=== PATIENT | male | born 1985 | race Caucasian/White ===

== ENCOUNTER 2017-08-03 13:19 | Emergency (ER) | payer OTHER, SELFPAY | END 2017-08-03 16:10 | disposition home or self-care (01) | PROVIDERS: Family Provider Family Medicine | DX: R05 Cough (principal) | CPT/HCPCS: 71020; 99201 ==

== ENCOUNTER 2017-11-07 06:57 | Emergency (ER) | payer OTHER, SELFPAY ==
[2017-11-07 07:01] VITALS: BP 139/98; PULSE 76; RESP 14; TEMP 36.5; O2SAT 98; BMI 24.4
[2017-11-07 07:19] LABS: Microscopic, Urine URINE MICROSCOPIC (MICROSCOPIC)
[2017-11-07 07:22] LABS: Appearance,Urine CLEAR (Clear); Bilirubin,Urine Negative (Negative); Blood, Urine Negative (Negative); Color,Urine YELLOW (Yellow); Glucose,Urine (UA) Negative (Negative); Ketones,Urine Negative (Negative); Leukocyte Esterase,Urine Negative (Negative); Nitrate,Urine Negative (Negative); PH,Urine 6.5 (5.0-8.5); Protein,Urine Negative (Negative); Specific Gravity, Urine <= 1.005 (1.005-1.030); Urobilinogen,Urine 0.2 EU/dl (0.2)
[2017-11-07 07:34] LABS: Basophils % 0.4 % (0.1-2.0); Eosinophils % 0.8 % (0.1-12.0); Hematocrit 44.2 % (42.0-52.0); Hemoglobin 15.3 g/dL (14.1-18.0); Lymphocytes # 1.5 K/mm3 (0.7-4.5); Lymphocytes % 26.6 K/mm3 (10-50); Mean Corpuscular HGB Conc 34.5 g/dL (31.8-35.4); Mean Corpuscular Hemoglobin 31.6 pg (27.0-31.2); Mean Corpuscular Volume 91.7 fl (80-94); Mean Platelet Volume 8.4 fl (7.4-10.4); Monocytes # 0.3 K/mm3 (0.1-1.0); Monocytes % 6.3 % (1.7-9.3); Neutrophils # 3.6 K/mm3 (1.8-7.8); Platelet Count 213 K/mm3 (142-424); Red Blood Count 4.82 M/mm3 (4.60-6.20); White Blood Count 5.4 K/mm3 (4.8-10.8)
--- NOTE | 2017-11-07 07:38 | PC.NURSE ---
pt refused left shoulder x-ray. +
[2017-11-07 07:40] LABS: Bacteria,Urine Trace /lpf; Squamous Epithelial Cell,Urine Occasional #/hpf (0-5)
[2017-11-07 08:06] LABS: Alanine Aminotransferase 24 U/L (12-78); Albumin Level 4.2 gm/dL (3.4-5.0); Albumin/Globulin Ratio 1.4 (1.1-1.8); Alkaline Phosphatase 81 U/L (46-116); Amylase 45 U/L (25-125); Anion Gap 13.7 mEq/L (5-15); Aspartate Amino Transferase 16 U/L (15-37); Bilirubin,Total 0.9 mg/dL (0.2-1.0); Blood Urea Nitrogen 11 mg/dL (7-18); CKMB Relative Index 0.7 U/L (0-4.0); Calcium 8.6 mg/dL (8.5-10.1); Carbon Dioxide 29 mmol/L (21.0-32.0); Chloride 102 mmol/L (98-107); Creatine Kinase 322 U/L (39-308); Creatine Kinase MB 2.4 mg/ml (0.0-3.6); Creatinine Clearance Estimated 115 mL/min (0-300); Creatinine,Serum 1.08 mg/dL (0.70-1.30); Estimated Glomerular Filt Rate 79 ml/min (>60); GFR (African American) 95 ML/MIN (>60); Globulin 3.1 gm/dl (1.3-3.2); Glucose 103 mg/dL (74-106); Lipase 80 u/L (73-393); Potassium 3.7 mmoL/L (3.5-5.1); Sodium 141 mmol/L (136-145); Total Protein,Serum 7.3 gm/dL (6.4-8.2); Troponin I < 0.02 ng/ml (0.00-0.06)
--- NOTE | 2017-11-07 08:37 | [facility]H.EDCP ---
ED Disposition Clinical Impression: Atypical chest pain Disposition: Home, Self-Care Condition on Discharge: Good Instructions: DI for Atypical Chest Pain Additional Instructions: See Dr. Gaming for follow up this week. Referrals: Sohail Gaming MD [Primary Care Provider] - Time of Disposition: 08:47 - Critical Care Critical Care Time: No Attestation: On 11/07/17, the high probability of a clinically significant, sudden or life threatening deterioration of the following system(s) required my full and direct attention, intervention and personal management. The time I documented below is in addition to time spent performing reported procedures but includes the following listed in this critical care notation. Medical Decision Making - Uriel Inquiry Pt receiving controlled substance: No Vital Signs: 11/07/17 07:01 Temperature 97.7 F Temperature Source Oral Pulse Rate [Right Radial] 76 Respiratory Rate 14 Blood Pressure [Right Arm] 139/98 Blood Pressure Mean [Right Arm] 111 Blood Pressure Source [Right Arm] Automatic Cuff Blood Pressure Position [Right Arm] Sitting 02 Sat by Pulse Oximetry 98 Oxygen Delivery Method Room Air - Lab Data Lab results reviewed: Yes: I reviewed the patient's lab results. Lab Results 11/07/17 07:07: Urine Color Yellow, Urine Appearance Clear, Urine pH 6.5, Ur Specific [place] <= 1.005, Urine Protein Negative, Urine Glucose (UA) Negative, Urine Ketones Negative, Urine Blood Negative, Urine Nitrate Negative, Urine Bilirubin Negative, Urine Urobilinogen 0.2, Ur Leukocyte Esterase Negative, Urine RBC None, Urine WBC None, Ur Squamous Epith Cells Occasional, Urine Bacteria Trace 11/07/17 07:23: WBC 5.4, RBC 4.82, Hgb 15.3, Hct 44.2, MCV 91.7, MCH 31.6 H, MCHC 34.5, RDW 12.0, Plt Count 213, MPV 8.4, Neut % (Auto) 66.0, Lymph % (Auto) 26.6, [place] % (Auto) 6.3, Eos % (Auto) 0.8, Baso % (Auto) 0.4, Neut # (Auto) 3.6, Lymph # (Auto) 1.5, [place] # (Auto) 0.3, Eos # (Auto) 0.0, Baso # (Auto) 0.0 11/07/17 07:23: Sodium 141, Potassium 3.7, Chloride 102, Carbon Dioxide 29, Anion Gap 13.7, BUN 11, Creatinine 1.08, Estimated Creat Clear 115, Estimated GFR 79, Est GFR ( Amer) 95, Glucose 103, Calcium 8.6, Total Bilirubin 0.9, AST 16, ALT 24, Alkaline Phosphatase 81, Total Creatine Kinase 322 H, CK-MB (CK-2) 2.4, CK-MB (CK-2) Rel Index 0.7, Troponin I < 0.02, Total Protein 7.3, Albumin 4.2, Globulin 3.1, Albumin/Globulin Ratio 1.4, Amylase 45, Lipase 80 Result diagrams: 11/07/17 07:23 11/07/17 07:23 Orders (Tests/Meds): ED MEDICATIONS Discontinued Medications Generic Name Dose Route Start Last Admin Trade Name Freq PRN Reason Stop Dose Admin Acetaminophen 650 mg 11/07/17 07:32 11/07/17 07:33 Acetaminophen 325mg Tab PO 11/07/17 07:33 650 mg ONCE ONE Administration Ketorolac Tromethamine 30 mg 11/07/17 07:12 11/07/17 07:36 Toradol 30mg/Ml Vial IV 11/07/17 07:13 Not Given ONCE ONE - ECG Data Tracing #1 I reviewed this ECG and interpreted as documented below: ECG initial impression date: 11/07/17 ECG initial impression time: 08:00 ECG normal with no acute: arrhythmias, ischemia, conduction abnormalities, chamber hypertrophy Normal Sinus Rhythm: Yes - Reevaluation(s) Time: 08:46 (NAD, no complaints, CXR not indicated clinically) Chest Pain HPI - General Chief Complaint: Chest Pain Stated Complaint: Pain behind lft shoul;Tightness in chest Time Seen by Provider: 11/07/17 08:30 Mode of Arrival: Ambulatory Source of Information: Patient Limitations: No Limitations Description of Symptoms (Recalled from ER Triage Doc. by RN): left shoulder blade pain, epigastric pain, took aspirin 164mg and a mountain dew kick start. has a burning sensation - History of Present Illness HPI narrative: Patient states he was up late last night playing cards, drank a Mountain Dew Kickstart then had carbonated water at the gas station, felt bloated and w
--- NOTE | 2017-11-07 08:41 | ED_ITS ---
ED Disposition Clinical Impression: Atypical chest pain Disposition: Home, Self-Care Condition on Discharge: Good Instructions: DI for Atypical Chest Pain Additional Instructions: See Dr. Gaming for follow up this week. Referrals: Shoail Gaming MD [Primary Care Provider] - Time of Disposition: 08:47 - Critical Care Critical Care Time: No Attestation: On 11/07/17, the high probability of a clinically significant, sudden or life threatening deterioration of the following system(s) required my full and direct attention, intervention and personal management. The time I documented below is in addition to time spent performing reported procedures but includes the following listed in this critical care notation. Medical Decision Making - Uriel Inquiry Pt receiving controlled substance: No Vital Signs: 11/07/17 07:01 Temperature 97.7 F Temperature Source Oral Pulse Rate [Right Radial] 76 Respiratory Rate 14 Blood Pressure [Right Arm] 139/98 Blood Pressure Mean [Right Arm] 111 Blood Pressure Source [Right Arm] Automatic Cuff Blood Pressure Position [Right Arm] Sitting 02 Sat by Pulse Oximetry 98 Oxygen Delivery Method Room Air - Lab Data Lab results reviewed: Yes: I reviewed the patient's lab results. Lab Results 11/07/17 07:07: Urine Color Yellow, Urine Appearance Clear, Urine pH 6.5, Ur Specific [place] <= 1.005, Urine Protein Negative, Urine Glucose (UA) Negative, Urine Ketones Negative, Urine Blood Negative, Urine Nitrate Negative, Urine Bilirubin Negative, Urine Urobilinogen 0.2, Ur Leukocyte Esterase Negative, Urine RBC None, Urine WBC None, Ur Squamous Epith Cells Occasional, Urine Bacteria Trace 11/07/17 07:23: WBC 5.4, RBC 4.82, Hgb 15.3, Hct 44.2, MCV 91.7, MCH 31.6 H, MCHC 34.5, RDW 12.0, Plt Count 213, MPV 8.4, Neut % (Auto) 66.0, Lymph % (Auto) 26.6, [place] % (Auto) 6.3, Eos % (Auto) 0.8, Baso % (Auto) 0.4, Neut # (Auto) 3.6 , Lymph # (Auto) 1.5, [place] # (Auto) 0.3, Eos # (Auto) 0.0, Baso # (Auto) 0.0 11/07/17 07:23: Sodium 141, Potassium 3.7, Chloride 102, Carbon Dioxide 29, Anion Gap 13.7, BUN 11, Creatinine 1.08, Estimated Creat Clear 115, Estimated GFR 79, Est GFR ( Amer) 95, Glucose 103, Calcium 8.6, Total Bilirubin 0.9 , AST 16, ALT 24, Alkaline Phosphatase 81, Total Creatine Kinase 322 H, CK-MB ( CK-2) 2.4, CK-MB (CK-2) Rel Index 0.7, Troponin I < 0.02, Total Protein 7.3, Albumin 4.2, Globulin 3.1, Albumin/Globulin Ratio 1.4, Amylase 45, Lipase 80 Result diagrams: 11/07/17 07:23 11/07/17 07:23 Orders (Tests/Meds): ED MEDICATIONS Discontinued Medications Generic Name Dose Route Start Last Admin Trade Name Freq PRN Reason Stop Dose Admin Acetaminophen 650 mg 11/07/17 07:32 11/07/17 07:33 Acetaminophen 325mg Tab PO 11/07/17 07:33 650 mg ONCE ONE Administration Ketorolac Tromethamine 30 mg 11/07/17 07:12 11/07/17 07:36 Toradol 30mg/Ml Vial IV 11/07/17 07:13 Not Given ONCE ONE - ECG Data Tracing #1 I reviewed this ECG and interpreted as documented below: ECG initial impression date: 11/07/17 ECG initial impression time: 08:00 ECG normal with no acute: arrhythmias, ischemia, conduction abnormalities, chamber hypertrophy Normal Sinus Rhythm: Yes - Reevaluation(s) Time: 08:46 (NAD, no complaints, CXR not indicated clinically) Chest Pain HPI - General C
[2017-11-07 08:49] VITALS: BP 132/82; PULSE 64; RESP 16; TEMP 36.7; O2SAT 100
== END 2017-11-07 08:53 | disposition home or self-care (01) ==
PROVIDERS: Emergency Medicine; Emergency Provider Emergency Medicine; Family Provider Family Medicine; PCP Family Medicine
DX: R07.89 Other chest pain (principal); M25.512 Pain in left shoulder; R10.13 Epigastric pain; F17.290 Nicotine dependence, other tobacco product, uncomplicated
CPT/HCPCS: 80053; 81001; 82150; 82550; 82553; 83690; 84484; 85025; 93005; 99283

== ENCOUNTER → 2019-08-28 15:40 | Outpatient (CLI) | payer BC, SELFPAY ==
--- NOTE | 2019-08-28 15:45 | MR_ITS ---
PROCEDURE: MR SHOULDER RT WO CON CLINICAL INDICATION: INJURY OF RT SHOULDER Posttraumatic pain with limited range of motion COMPARISON: XR SHOULDER RT MIN 2V from 08/26/2019 TECHNIQUE: Routine multiplanar multi echo sequences are performed without gadolinium enhancement. FINDINGS: There is complete tear of the supraspinatus and infraspinatus tendons with retraction of the musculotendinous fibers with resultant subacromial stenosis. The subscapularis and teres minor tendons appear intact. No obvious labral tear. Bicipital tendon is slightly displaced medially out of the bicipital groove. There is bone marrow edema within the bicipital groove region. There fluid in the subdeltoid/subacromial region within the joint space as well as the subcoracoid region. No displaced fracture. There is edema within the infraspinatus muscle. IMPRESSION: 1. Complete tear of the supraspinatus and infraspinatus tendons with retraction of the musculotendinous fibers. 2. Mild displacement medially of the bicipital tendon with bone marrow edema within the bicipital tendon groove which may be due to bone contusion. 3. Edema within the infraspinatus muscle which may be due to concomitant muscle tear/contusion along with tendon tear 4. Shoulder joint effusion Dictated by: Marcelo Nesbitt MD 08/30/2019 10:51 Electronically signed by Marcelo Nesbitt MD in [place] 08/30/2019 10:51
== END ==
PROVIDERS: PCP Family Medicine; Visit Provider Physician Assistant
DX: S49.91XA Unspecified injury of right shoulder and upper arm, initial encounter (principal); M62.81 Muscle weakness (generalized)
CPT/HCPCS: 73221

== ENCOUNTER 2022-04-05 19:52 | Emergency (ER) | payer BC, SELFPAY ==
[2022-04-05 19:58] VITALS: BP 151/89; PULSE 79; RESP 18; TEMP 36.6; O2SAT 99; BMI 24.4
--- NOTE | 2022-04-05 20:00 | XR_ITS ---
PROCEDURE INFORMATION: Exam: XR Right Forearm Exam date and time: 04/05/22 08:07 PM Age: 36 years old Clinical indication: Injury or trauma; Fall; Work related; Arm, lower; Right; Patient HX: Lacerations, R/O fb TECHNIQUE: Imaging protocol: Radiologic exam of the Right forearm. Views: 2 views. COMPARISON: No relevant prior studies available. FINDINGS: Bones/joints: Normal. Soft tissues: Normal. IMPRESSION: No acute findings.
--- NOTE | 2022-04-05 20:01 | XR_ITS ---
PROCEDURE INFORMATION: Exam: XR Right Hand Exam date and time: 04/05/22 08:09 PM Age: 36 years old Clinical indication: Injury or trauma; Fall; Work related; Hand; Right; Patient HX: Lacerations, R/O fb; Additional info: Fall, trauma TECHNIQUE: Imaging protocol: Radiologic exam of the Right hand. Views: 3 or more views. COMPARISON: CR XR FOREARM RT 2V 04/05/22 08:07 PM FINDINGS: Bones/joints: Normal. Soft tissues: Soft tissue laceration right wrist on the ulnar side. IMPRESSION: 1. Soft tissue laceration. 2. No radiopaque foreign body.
--- NOTE | 2022-04-05 20:01 | [facility]H.EDGENADL ---
ED Disposition Clinical Impression: Laceration Forearm laceration Qualifiers: Encounter type: initial encounter Laterality: right Qualified Code(s): S51.811A - Laceration without foreign body of right forearm, initial encounter Disposition: Home, Self-Care Condition on Discharge: Good Instructions: DI for Laceration Repair, DI for Laceration Repair -- Simple Additional Instructions: You have been evaluated for fall, lacerations. Please keep wounds clean and dry for 24 hours. Ok to shower after that. Tylenol and motrin for pain. FOllow up with your primary care doctor for wound check in 1-2 days. Follow up for suture removal in 7-10 days. Return to the emergency department at once for any new or worsening symptoms, pain, wound drainage, fevers, chills, signs of infection or any other concerns. Referrals: Provider,Referral, [Referring] - Time of Disposition: 20:54 - Critical Care Critical Care Time: No Attestation: On , the high probability of a clinically significant, sudden or life threatening deterioration of the following system(s) required my full and direct attention, intervention and personal management. The time I documented below is in addition to time spent performing reported procedures but includes the following listed in this critical care notation. Medical Decision Making - Medical Records Medical records reviewed: Yes: I reviewed the patient's medical records. - Uriel Inquiry Pt receiving controlled substance: No Vital Signs: 04/05/22 19:58 04/05/22 21:07 Temperature 98 F 98 F Temperature Source Oral Oral Pulse Rate 71 Pulse Rate [Apical] 79 Respiratory Rate 18 18 Blood Pressure 149/78 H Blood Pressure [Right Arm] 151/89 H Blood Pressure Mean [Right Arm] 109 Blood Pressure Source [Right Arm] Automatic Cuff Blood Pressure Position [Right Arm] Sitting 02 Sat by Pulse Oximetry 99 Oxygen Delivery Method Room Air Medical Decision Narrative: In summary this is a previously healthy, 36-year-old male presenting to the emergency department for lacerations to the right forearm. Patient clinically stable on arrival. Vital signs within normal limits. Bleeding is controlled. The largest laceration is on the ulnar aspect of the forearm, near the ulnar styloid. It is not on the volar aspect. Radial and ulnar pulse palpable. Tendons of the wrist intact. Will obtain x-rays to assess for foreign body or fractures from fall. X-rays show no fracture or dislocation. Wounds anesthetized with 1% lidocaine. Repaired with sutures. Procedure well-tolerated. On repeat evaluation, patient continues to be neurovascularly intact. Strong palpable ulnar and radial pulse. Good finger motion. Sensation intact. Counseled him on wound care. Recommended close PCP follow-up. Given return precautions. Stable for discharge. General Adult HPI - General Stated complaint: laceration Time Seen by Provider: 04/05/22 20:01 Mode of Arrival: Ambulatory Source of Information: Patient Limitations: No Limitations - History of Present Illness HPI narrative: 36-year-old male presenting to the emergency department for lacerations to the right forearm. Incident happened just prior to arrival. He was in his kitchen, doing dishes. Lost his balance and fell, his right arm went through a piece of glass. He sustained a large laceration on his wrist, near the bone on the side. Also had small lacerations on his upper forearm. Tied a T-shirt around his arm to get bleeding to slow. No numbness, weakness, tingling in his fingers. He is able to move all of the fingers. No other injuries in the fall. Most recent tetanus shot was 3 years ago. - Related Data Previous Rx's Medication Instructions Recorded amoxicillin 875 mg-potassium 1 tab PO BID #14 tab 07/25/19 clavulanate 125 mg tablet Cyclobenzaprine HCl 10 mg PO Q8H PRN #10 tab 08/26/19 [Cyclobenzaprine 10mg Tab] Ketorolac Tromethamine [Toradol 1
[2022-04-05 21:07] VITALS: BP 149/78; PULSE 71; RESP 18; TEMP 36.6; O2SAT 99
== END 2022-04-05 21:08 | disposition home or self-care (01) ==
PROVIDERS: Emergency Provider Emergency Medicine; PCP Family Medicine
DX: S51.811A Laceration without foreign body of right forearm, initial encounter (principal); S61.411A Laceration without foreign body of right hand, initial encounter
CPT/HCPCS: 12002; 73090; 73130; 99283

== ENCOUNTER → 2022-06-15 14:49 | Outpatient (CLI) | payer BC, SELFPAY ==
[2022-06-15 15:12] LABS: Coronavirus 19, PCR Not Detected (NotDetected); Influenza A, PCR Not Detected (NotDetected); Influenza B, PCR Not Detected (NotDetected)
[2022-06-15 15:19] LABS: Basophils # 0.1 K/mm3 (0-0.2); Basophils % 0.7 % (0.1-2.0); Eosinophils # 0.1 K/mm3 (0.0-0.4); Eosinophils % 1.4 % (0.1-12.0); Hematocrit 46.1 % (42.0-52.0); Hemoglobin 15.6 g/dL (14.1-18.0); Lymphocytes # 1.2 K/mm3 (0.7-4.5); Lymphocytes % 13.8 % (10-50); Mean Corpuscular HGB Conc 33.9 g/dL (31.8-35.4); Mean Corpuscular Hemoglobin 32.7 pg (27.0-31.2); Mean Corpuscular Volume 96.5 fl (80-94); Mean Platelet Volume 8.7 fl (7.4-10.4); Monocytes # 0.6 K/mm3 (0.1-1.0); Monocytes % 6.6 % (1.7-9.3); Neutrophils % 77.5 % (37.0-80.0); Platelet Count 198 K/mm3 (142-424); Red Blood Count 4.77 M/mm3 (4.60-6.20); Red Cell Distribution Width 12.3 % (11.5-17.5)
[2022-06-15 15:28] LABS: Strep Scrn Group A (Rapid) Negative (Negative)
== END ==
PROVIDERS: PCP Family Medicine; Visit Provider Physician Assistant
DX: Z20.822 Contact with and (suspected) exposure to COVID-19 (principal); J02.9 Acute pharyngitis, unspecified
CPT/HCPCS: 36415; 85025; 87430; C9803; U0003; U0005

== ENCOUNTER → 2022-06-29 13:52 | Outpatient (CLI) | payer BC, SELFPAY ==
[2022-06-29 14:30] LABS: Coronavirus 19, PCR Not Detected (NotDetected); Influenza B, PCR Not Detected (NotDetected)
[2022-06-29 14:39] LABS: Basophils # 0.1 K/mm3 (0-0.2); Basophils % 1.2 % (0.1-2.0); Eosinophils # 0.1 K/mm3 (0.0-0.4); Eosinophils % 0.8 % (0.1-12.0); Hematocrit 45.5 % (42.0-52.0); Hemoglobin 15.4 g/dL (14.1-18.0); Lymphocytes # 1.1 K/mm3 (0.7-4.5); Lymphocytes % 19.5 % (10-50); Mean Corpuscular HGB Conc 33.9 g/dL (31.8-35.4); Mean Corpuscular Hemoglobin 32.2 pg (27.0-31.2); Mean Platelet Volume 8.6 fl (7.4-10.4); Monocytes # 0.5 K/mm3 (0.1-1.0); Monocytes % 8.6 % (1.7-9.3); Neutrophils % 69.8 % (37.0-80.0); Platelet Count 219 K/mm3 (142-424); Red Blood Count 4.79 M/mm3 (4.60-6.20); Red Cell Distribution Width 12.3 % (11.5-17.5); White Blood Count 5.8 K/mm3 (4.8-10.8)
[2022-06-29 18:43] LABS: Influenza A, PCR Detected (NotDetected)
== END ==
PROVIDERS: PCP Family Medicine; Visit Provider Physician Assistant
DX: Z20.822 Contact with and (suspected) exposure to COVID-19 (principal); J06.9 Acute upper respiratory infection, unspecified; J09.X2 Influenza due to identified novel influenza A virus with other respiratory manifestations
CPT/HCPCS: 36415; 85025; C9803; U0003; U0005